=== PATIENT | female | born 1955 | race Caucasian/White ===

== ENCOUNTER 2016-07-21 08:00 | Outpatient (CLI) | payer OTHER | END 2016-07-21 23:59 | disposition home or self-care (01) | DX: R30.0 Dysuria (principal) ==

== ENCOUNTER 2016-08-18 13:53 | Outpatient (CLI) | payer OTHER | END 2016-08-18 13:54 | disposition home or self-care (01) | DX: N39.0 Urinary tract infection, site not specified (principal) ==

== ENCOUNTER 2017-04-15 10:40 | Outpatient (CLI) | payer OTHER ==
--- NOTE | 2017-05-01 11:17 | Mammography Report ---
DIGITAL SCREENING MAMMOGRAM: 04/15/2017 CLINICAL INDICATION: A 62-year-old, for screening. COMPARISON: The patient reports having had previous mammograms in [place], but films are not yet availa ble for direct comparison. If they become available, an addendum will be issued. TECHNIQUE: Routine CC and MLO projections were obtained of the breasts. Bilateral laterally exaggera easton craniocaudal views. FINDINGS: The breasts demonstrate scattered fibroglandular densities bilaterally. A few punctate, ty pically benign calcifications are present. No suspicious masses, clustered microcalcifications, or re gions of architectural distortion are identified. IMPRESSION: BENIGN FINDINGS. RECOMMENDATION: ROUTINE ANNUAL SCREENING UNLESS OTHERWISE CLINICALLY INDICATED. BIRADS CATEGORY 2-BENIGN FINDINGS. STANDARD QUALIFYING STATEMENTS 1. This examination was reviewed with the aid of Computer-Aided Detection (CAD). 2. A negative or benign imaging report should not delay biopsy if clinically suspicious findings are present. Consider surgical consultation if warranted. More than 5% of cancers are not identified by i maging. 3. Dense breasts may obscure an underlying neoplasm. JOB #: [id number] EXT JOB #:[id number]
== END 2017-04-15 10:41 | disposition home or self-care (01) ==
LOC: DI.S 10:40
PROVIDERS: ATTEND Nurse Practitioner Family
DX: Z12.31 Encounter for screening mammogram for malignant neoplasm of breast (principal)
CPT/HCPCS: 77067

== ENCOUNTER 2017-05-25 09:03 | Day surgery (SDC) | payer OTHER ==
[2017-05-25] MEDS ORDERED: LACTATED RINGERS 1,000 ML IV ONE (09:11)
[2017-05-25] MEDS ORDERED: MIDAZOLAM 2 MG/2 ML VIAL IVP ONE (10:11)
[2017-05-25] MEDS ORDERED: fentaNYL 100 MCG/2 ML VIAL IVP ONE (10:11)
[2017-05-25] MEDS ORDERED: ONDANSETRON 4 MG/2 ML VIAL ONE (11:10)
[2017-05-25] MEDS ORDERED: ONDANSETRON ODT 4 MG TABLET ONE (11:57)
[2017-05-25 11:58] VITALS: BP 105/51
== END 2017-05-25 09:04 | disposition home or self-care (01) ==
LOC: SDS 09:03
PROVIDERS: ATTEND Surgery
PROC: 0DJD8ZZ Inspection of Lower Intestinal Tract, Via Natural or Artificial Opening Endoscopic (ICD-10-PCS; principal; 2017-05-25 10:30)
DX: Z12.11 Encounter for screening for malignant neoplasm of colon (principal); K57.30 Diverticulosis of large intestine without perforation or abscess without bleeding; K64.8 Other hemorrhoids
CPT/HCPCS: 45378; J7120

== ENCOUNTER 2021-10-15 15:02 | Outpatient (CLI) | payer OTHER ==
--- NOTE | 2021-10-16 14:36 | Mammography Report ---
BILATERAL DIGITAL SCREENING MAMMOGRAM 3D/2D: 10/15/2021 CLINICAL: Routine screening. Comparison is made to exam dated: 04/15/2017 mammogram - [facility]. There are sca ttered fibroglandular elements in both breasts. No significant masses, calcifications, or other findings are seen in either breast. There has been no significant interval change. IMPRESSION: NEGATIVE There is no mammographic evidence of malignancy. A 1 year screening mammogram is recommended. This exam was interpreted at Station ID: [id number]. NOTE: For mammograms, a report in lay terms will be sent to the patient. Approximately 15% of breast malignancies will not be visualized mammographically. In the management of a palpable breast mass, a negative mammogram must not discourage biopsy of a clinically suspicious lesion. Electronically Signed By: Hanny hernadez/[email or web address]:10/16/2021 14:04:59 ACR BI-RADS Category 1: Negative 3341F PARENCHYMAL PATTERN: (A) - The breast(s) demonstrate(s) scattered fibroglandular densities. BI-RADS CATEGORY: (1) - 1 RECOMMENDATION: (ANNUAL) - Recommend routine annual screening mammography. [id number] 1 year screening LATERALITY: (B)
== END 2021-10-15 15:03 | disposition home or self-care (01) ==
LOC: DI.S 15:02
DX: Z12.31 Encounter for screening mammogram for malignant neoplasm of breast (principal)

== ENCOUNTER 2022-06-05 12:11 | Outpatient (CLI) | payer OTHER ==
[2022-06-05 14:55] LABS: BASOPHILS # (AUTO) 0.1 10^3/uL (0.0-0.1); BASOPHILS % (AUTO) 0.8 %; EOSINOPHILS # (AUTO) 0.1 10^3/uL (0.0-0.7); EOSINOPHILS % (AUTO) 1.8 %; HCT - HEMATOCRIT 44.2 % (37.0-47.0); HGB - HEMOGLOBIN 13.6 g/dL (12.0-16.0); LYMPHOCYTES # (AUTO) 1.7 10^3/uL (1.5-3.5); LYMPHOCYTES % (AUTO) 21.9 %; MEAN CORPUSCULAR HEMOGLOBIN 28.9 pg (27.0-31.0); MEAN CORPUSCULAR HGB CONC 30.8 g/dL (32.0-36.0); MEAN PLATELET VOLUME 10.4 fL (7.9-10.8); MONOCYTES # (AUTO) 0.6 10^3/uL (0.0-1.0); NEUTROPHILS # (AUTO) 5.3 10^3/uL (1.5-6.6); PLT - PLATELET COUNT 285 10^3/uL (130-450); RED CELL DISTRIBUTION WIDTH 12.1 % (12.0-15.0); WHITE BLOOD COUNT 7.9 x10^3/uL (4.8-10.8)
[2022-06-05 15:47] LABS: THYROID STIMULATING HORMONE 1.91 uIU/mL (0.34-5.60)
[2022-06-05 15:59] LABS: ALBUMIN 4.2 g/dL (3.2-5.5); ALBUMIN/GLOBULIN RATIO 1.3 (1.0-2.2); ALKALINE PHOSPHATASE 86 IU/L (42-121); ALT ALANINE AMINOTRANSFERASE 20 IU/L (10-60); AST ASPARTATE AMINOTRANSFERASE 17 IU/L (10-42); BILIRUBIN,TOTAL 0.8 mg/dL (0.2-1.0); BUN - BLOOD UREA NITROGEN 17 mg/dL (6-20); CALCIUM 9.5 mg/dL (8.5-10.3); CARBON DIOXIDE - CO2 30 mmol/L (21-32); CHLORIDE 102 mmol/L (101-111); CHOL/HDL RATIO 5.1 (<4.4); CHOLESTEROL 256 mg/dL; CREATININE 0.9 mg/dL (0.4-1.0); GFR - MDRD 62 (>89); GLUCOSE 132 mg/dL (70-100); HDL CHOLESTEROL 50 mg/dL; LDL CHOLESTEROL,CALCULATED 154 mg/dL; LDL/HDL RATIO 3.1 (<4.4); POTASSIUM 4.2 mmol/L (3.5-5.0); SODIUM 138 mmol/L (135-145); TOTAL PROTEIN 7.4 g/dL (6.7-8.2); TRIGLYCERIDES 261 mg/dL; VLDL CHOLESTEROL 52 mg/dL
== END 2022-06-05 12:12 | disposition home or self-care (01) ==
LOC: LAB.S 12:11
PROVIDERS: ATTEND Registered Nurse
DX: Z00.00 Encounter for general adult medical examination without abnormal findings (principal); L40.9 Psoriasis, unspecified; Z13.220 Encounter for screening for lipoid disorders
CPT/HCPCS: 36415; 80053; 80061; 83721; 84443; 85025

== ENCOUNTER 2022-09-03 08:00 | Outpatient (CLI) | payer MEDICARE, OTHER ==
--- NOTE | 2022-09-03 10:13 | XRAY Report ---
PROCEDURE: Wrist 4 View RT INDICATIONS: RIGHT WRIST PAIN TECHNIQUE: 4 views of the wrist were acquired. COMPARISON: None FINDINGS: Bones: No fractures or dislocations. Moderate osteoarthritic changes are noted throughout right wris t most notably at first CMC joint and scaphotrapezial joint. No suspicious bony lesions. Scaphoid view: Scaphoid is grossly intact. No evidence of osteonecrosis. Soft tissues: No suspicious soft tissue calcifications. IMPRESSION: No acute wrist fracture or dislocation. 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 Reviewed by: Casey Montemayor MD on 09/03/2022 10:12 AM PDT Approved by: Casey Montemayor MD on 09/03/2022 10:12 AM PDT Station ID: [id number]
--- NOTE | 2022-09-03 10:14 | XRAY Report ---
PROCEDURE: Wrist 4 View LT INDICATIONS: LEFT WRIST PAIN TECHNIQUE: 4 views of the wrist were acquired. COMPARISON: None FINDINGS: Bones: Acute comminuted fractures involving distal radius is seen with impaction at distal radial sha ft fracture site, volar and lateral displacement of fractured fragments and fracture line extending t o radiocarpal joint space. Osteoarthritic changes are noted throughout wrist joints. No other fractur e or dislocation is noted. No suspicious bony lesions. Scaphoid view: Scaphoid is grossly intact. Soft tissues: No suspicious soft tissue calcifications. IMPRESSION: Acute comminuted, impacted and displaced intra-articular fracture of distal radius as above. No other fracture or dislocation. Left wrist joint osteoarthritis. Reviewed by: Casey Montemayor MD on 09/03/2022 10:13 AM PDT Approved by: Casey Montemayor MD on 09/03/2022 10:13 AM PDT Station ID: [id number]
--- NOTE | 2022-09-03 10:15 | XRAY Report ---
PROCEDURE: Hand 3 View RT INDICATIONS: RIGHT HAND PAIN TECHNIQUE: 3 views of the hand(s) acquired. COMPARISON: None FINDINGS: Bones: No fractures or dislocations. Osteoarthritic changes are noted throughout right-hand and wri st joints. No suspicious bony lesions. Soft tissues: No suspicious soft tissue calcifications. Soft tissue swelling over dorsal aspect of metacarpal bones is seen. IMPRESSION: Right hand and wrist joint osteophyte is. No acute right hand fracture or dislocation. Dorsal soft ti ssue swelling. Reviewed by: Casey Montemayor MD on 09/03/2022 10:14 AM PDT Approved by: Casey Montemayor MD on 09/03/2022 10:14 AM PDT Station ID: [id number]
--- NOTE | 2022-09-03 10:22 | XRAY Report ---
PROCEDURE: Hand 3 View LT INDICATIONS: LEFT HAND PAIN TECHNIQUE: 3 views of the hand(s) acquired. COMPARISON: None FINDINGS: Bones: Comminuted and impacted intra-articular fracture of distal radius is seen. No acute fracture o r dislocation is seen in left hand. Moderate to severe osteoarthritic changes throughout left hand ar e seen. No suspicious bony lesions. Soft tissues: No suspicious soft tissue calcifications. IMPRESSION: No acute left hand fracture or dislocation. Osteoarthritic changes throughout left hand joints. Commi nuted and impacted distal radial fracture. Reviewed by: Casey Montemayor MD on 09/03/2022 10:20 AM PDT Approved by: Casey Montemayor MD on 09/03/2022 10:20 AM PDT Station ID: [id number]
== END 2022-09-03 23:59 | disposition home or self-care (01) ==
LOC: DI.S 08:00
PROVIDERS: ATTEND Physician Assistant Medical
DX: S63.8X2A Sprain of other part of left wrist and hand, initial encounter (principal); S63.8X1A Sprain of other part of right wrist and hand, initial encounter; M19.031 Primary osteoarthritis, right wrist; S52.502A Unspecified fracture of the lower end of left radius, initial encounter for closed fracture; M19.032 Primary osteoarthritis, left wrist; M19.041 Primary osteoarthritis, right hand; M19.042 Primary osteoarthritis, left hand

== ENCOUNTER 2022-09-08 13:26 | Outpatient (CLI) | payer MEDICARE ==
--- NOTE | 2022-09-08 14:33 | XRAY Report ---
PROCEDURE: Hand 3 View RT INDICATIONS: NONDISPLACED FRACTURE OF DISTAL PHALANX OF R LITTL TECHNIQUE: 3 views of the hand(s) acquired. COMPARISON: X-ray hand 09/03/2022 FINDINGS: Bones: There is a prominent osteophyte at the fifth IP joint with appearance of possible fracture ne ar the origin. In addition, there is an offset appearance at the base of the distal fifth phalanx.. N o suspicious bony lesions. Scattered IP degenerative narrowing. Soft tissues: No suspicious soft tissue calcifications or masses. IMPRESSION: Distal fifth phalanx base fracture unchanged compared to prior exam. In addition, prominent osteophyt e is present with possible fracture at the origin. Reviewed by: Arlen Iyer MD on 09/08/2022 2:32 PM PDT Approved by: Arlen Iyer MD on 09/08/2022 2:32 PM PDT Station ID: [id number]
--- NOTE | 2022-09-08 16:04 | XRAY Report ---
PROCEDURE: Wrist 4 View BILAT INDICATIONS: UNSPECIFIED FRACTURE OF THE LOWER END OF LEFT RADI TECHNIQUE: 4 views of each of the bilateral wrist were acquired. COMPARISON: 09/03/2022 FINDINGS: Bones: Splinted views of the left wrist were acquired. Splint material obscures fine underlying osse ous details. Redemonstration of moderately comminuted, intra-articular fracture of the distal left ra dius with mild impaction and volar angulation. This has not significantly changed. Stable appearance of severe degenerative changes of the left wrist predominantly involving the first carpometacarpal vazquez int and triscaphe joint. Right wrist demonstrate stable alignment. No acute or subacute fractures identified. Polyarticular de generative changes of the right wrist appear stable. Findings are also most pronounced in the first c arpal metacarpal joint and triscaphe joint. Soft tissues: No suspicious soft tissue calcifications or masses. IMPRESSION: 1. Stable appearance and alignment of comminuted, mildly impacted, and displaced fracture of the dist al left radius. Intra-articular extension as before. 2. Stable radiographic appearance of the right wrist without evidence for acute fracture, dislocation , or reactive changes of subacute fracture healing. 3. Polyarticular degenerative changes of the bilateral wrists which appear most severe in the first c arpometacarpal joint and triscaphe joints bilaterally. Reviewed by: James Prasad MD on 09/08/2022 4:03 PM PDT Approved by: James Prasad MD on 09/08/2022 4:03 PM PDT Station ID: [id number]
== END 2022-09-08 13:27 | disposition home or self-care (01) ==
LOC: DI.S 13:26
PROVIDERS: ATTEND Orthopaedic Surgery
DX: S52.572A Other intraarticular fracture of lower end of left radius, initial encounter for closed fracture (principal); S62.616A Displaced fracture of proximal phalanx of right little finger, initial encounter for closed fracture; S63.8X1A Sprain of other part of right wrist and hand, initial encounter; M19.031 Primary osteoarthritis, right wrist; M19.032 Primary osteoarthritis, left wrist; M18.0 Bilateral primary osteoarthritis of first carpometacarpal joints

== ENCOUNTER 2022-09-16 14:40 | Outpatient (CLI) | payer MEDICARE ==
--- NOTE | 2022-09-16 15:18 | XRAY Report ---
PROCEDURE: Wrist 3 View LT INDICATIONS: LEFT WRIST FRACTURE TECHNIQUE: 3 views of the wrist were acquired. COMPARISON: Left wrist radiographs 09/08/2022 FINDINGS: Bones: Impacted comminuted intra-articular fracture at the distal radius is again seen. The alignmen t does not appear significantly changed compared to the prior radiographs. No new osseous abnormality . Background degenerative changes and osteopenia again noted. Soft tissues: Soft tissue edema seen surrounding the wrist. IMPRESSION: Comminuted mildly impacted intra-articular fracture of the distal radius is redemonstrated with uncha nged alignment. Reviewed by: Ken Man MD on 09/16/2022 3:17 PM PDT Approved by: Ken Man MD on 09/16/2022 3:17 PM PDT Station ID: [id number]
== END 2022-09-16 14:47 | disposition home or self-care (01) ==
LOC: DI.WOS 14:40
PROVIDERS: ATTEND Orthopaedic Surgery
DX: S52.532D Colles' fracture of left radius, subsequent encounter for closed fracture with routine healing (principal)

== ENCOUNTER 2022-10-21 16:55 | Outpatient (CLI) | payer MEDICARE ==
--- NOTE | 2022-10-21 21:01 | XRAY Report ---
PROCEDURE: Wrist 3 View LT INDICATIONS: LEFT WRIST FX TECHNIQUE: 3 views of the wrist were acquired. COMPARISON: 09/16/2022 FINDINGS: Bones: Similar alignment of the previously demonstrated distal radius fracture with mild volar angul ation of the distal fragment. Bony callus is present about the fracture plane. Soft tissues: No suspicious soft tissue calcifications. IMPRESSION: Similar alignment of the previously demonstrated distal radius fracture. Reviewed by: Ken Perez MD on 10/21/2022 9:00 PM PDT Approved by: Ken Perez MD on 10/21/2022 9:00 PM PDT Station ID: [id number]
--- NOTE | 2022-10-21 21:20 | XRAY Report ---
PROCEDURE: Hand 3 View RT INDICATIONS: RIGHT HAND FX TECHNIQUE: 3 views of the hand(s) acquired. COMPARISON: 09/08/2022 FINDINGS: Bones: Similar appearance of the nondisplaced fracture of the dorsal base of the fifth digit distal phalanx. Polyarticular degenerative changes of the hand redemonstrated. Appearance of a sclerotic ban d at the distal radial metaphysis could indicate a subacute fracture. Soft tissues: No suspicious soft tissue calcifications . IMPRESSION: Similar appearance of the nondisplaced fracture of the dorsal base of the fifth digit distal phalanx. Appearance of a sclerotic band at the distal radial metaphysis could indicate a subacute fracture. Reviewed by: Ken Perez MD on 10/21/2022 9:19 PM PDT Approved by: Ken Perez MD on 10/21/2022 9:19 PM PDT Station ID: [id number]
== END 2022-10-21 16:57 | disposition home or self-care (01) ==
LOC: DI.WOS 16:55
PROVIDERS: ATTEND Orthopaedic Surgery
DX: S52.532D Colles' fracture of left radius, subsequent encounter for closed fracture with routine healing (principal); S62.666D Nondisplaced fracture of distal phalanx of right little finger, subsequent encounter for fracture with routine healing; M19.041 Primary osteoarthritis, right hand